=== PATIENT | female | born 1985 | race Caucasian/White ===

== ENCOUNTER 2020-11-10 16:49 | Outpatient (CLI) | payer OTHER, SELFPAY ==
[2020-11-10 17:05] LABS: Basophils Percent Auto 0.4 % (0.2-1.2); Eosinophils Absolute Auto 0.3 K/mm3 (0-0.3); Eosinophils Percent Auto 3.3 % (0-4.4); Hematocrit 42.1 % (37.0-47.0); Immature Granulocyte Absolute 0.07 K/mm3 (0.00-0.031); Immature Granulocyte Percent A 0.8 % (0-0.5); Mean Corpuscular HGB Conc 33.3 g/dl (32-36); Mean Corpuscular Hemoglobin 31.5 pg (26-34); Mean Corpuscular Volume 94.6 fl (80-100); Mean Platelet Volume 9.5 fl (7.4-10.4); Monocytes Absolute Auto 1.1 K/mm3 (0.1-0.6); Neutrophils Absolute Auto 5.3 K/mm3 (1.3-6.7); Neutrophils Percent Auto 63.5 % (45.5-73.1); Platelet Count Result 432 k/mm3 (150-375); Red Blood Count 4.45 M/mm3 (4.2-5.4); Red Cell Distribution Width 12.8 % (11.5-14.5); White Blood Count 8.4 K/mm3 (4.5-10.0)
[2020-11-10 17:15] LABS: Alanine Aminotransferase 71 U/L (4-35); Albumin Level 3.9 g/dL (3.5-5.1); Alkaline Phosphatase 100 U/L (38-126); Amylase 42 U/L (30-110); Anion Gap 4 mmol/L (8-16); Aspartate Amino Transferase 55 U/L (14-36); Bilirubin,Total 0.2 mg/dL (0.2-1.3); Blood Urea Nitrogen 9 mg/dL (7-17); Calcium 9.4 mg/dL (8.4-10.2); Carbon Dioxide 30 mmol/L (22-30); Chloride 106 mmol/L (98-107); Estimated Glomerular Filt Rate > 60; Glucose 94 mg/dL (65-105); Lipase 100 U/L (23-300); Potassium 3.8 mmol/L (3.4-5.0); Sodium 140 mmol/L (137-145)
== END 2020-11-10 16:50 | disposition home or self-care (01) ==
LOC: ANHLAB 16:52
PROVIDERS: PCP Family Medicine; Visit Provider Nurse Practitioner Family
DX: R19.7 Diarrhea, unspecified (principal)
CPT/HCPCS: 36415; 80053; 82150; 83690; 85025

== ENCOUNTER 2020-11-11 16:03 | Outpatient (CLI) | payer OTHER, SELFPAY ==
--- NOTE | ~2020-11-11 | CT_ITS ---
EXAMINATION: CT abdomen pelvis w con EXAM DATE: 11/11/2020 16:41 INDICATION: R19.7 - Diarrhea, unspecified. Left upper quadrant pain. TECHNIQUE: Spiral CT of the abdomen and pelvis was performed following intravenous injection of 100 m L Omnipaque 350. Axial, coronal and sagittal images of the abdomen and pelvis were reviewed. The do se-length product (DLP) for this examination was 1628.66 mGy-cm. The exposure was tailored according to patient size (auto mA exposure control), and iterative reconstruction (ASIR) was used as addition al dose reduction technique. There is no prior study for comparison. FINDINGS: The liver, spleen, adrenal glands and pancreas are unremarkable. There are cholecystectomy clips. Portal and splenic veins are patent. Kidneys enhance symmetrically. There is no hydronephr osis. There is IUD which appears to be centrally located within the endometrium, expected position. The bladder is unremarkable. There is no retroperitoneal or pelvic lymphadenopathy. Only small amount of colonic contents. Under distention may be causing mild prominence to some region s of the colon wall thickness. There is no adjacent inflammation but can't exclude mild colitis. The appendix is not positively visualized. There is no pericecal inflammatory change to suggest appendic itis. The stomach and small bowel are unremarkable. No free intraperitoneal gas. The heart is nor mal in size. There are no pericardial or pleural effusions. The lung bases are unremarkable. The b ones are unremarkable. IMPRESSION: Can't exclude mild colitis. Reviewed, dictated and finalized at location A. IMPRESSION: Can't exclude mild colitis.
== END 2020-11-11 16:04 | disposition home or self-care (01) ==
PROVIDERS: PCP Family Medicine; Visit Provider Nurse Practitioner Family
DX: R10.812 Left upper quadrant abdominal tenderness (principal); R10.9 Unspecified abdominal pain; R19.7 Diarrhea, unspecified
CPT/HCPCS: 74177; Q9967

== ENCOUNTER 2020-11-17 16:21 | Outpatient (CLI) | payer OTHER, SELFPAY ==
[2020-11-17 17:25] LABS: Erythrocyte Sedimentation Rate 19 mm/hr (0-20)
[2020-11-17 17:49] LABS: Alanine Aminotransferase 43 U/L (4-35); Albumin Level 4.3 g/dL (3.5-5.1); Alkaline Phosphatase 74 U/L (38-126); Anion Gap 6 mmol/L (8-16); Aspartate Amino Transferase 44 U/L (14-36); Bilirubin,Total 0.4 mg/dL (0.2-1.3); Blood Urea Nitrogen 16 mg/dL (7-17); CRP 0.8 mg/dL (<1.0); Calcium 9.2 mg/dL (8.4-10.2); Carbon Dioxide 29 mmol/L (22-30); Chloride 104 mmol/L (98-107); Cholesterol 169 mg/dL (0-200); Estimated Glomerular Filt Rate > 60; Glucose 89 mg/dL (65-105); HDL Direct 36 mg/dL; Sodium 139 mmol/L (137-145); Triglycerides 131 mg/dL (<150)
[2020-11-17 17:55] LABS: LDL Cholesterol Direct 108 mg/dL
[2020-11-20 04:16] LABS: GGT 42 U/L (3-50)
== END 2020-11-17 16:22 | disposition home or self-care (01) ==
LOC: ANHLAB 16:23
PROVIDERS: PCP Family Medicine; Visit Provider Nurse Practitioner Family
DX: R74.8 Abnormal levels of other serum enzymes (principal); R10.10 Upper abdominal pain, unspecified; R19.7 Diarrhea, unspecified
CPT/HCPCS: 36415; 80053; 80061; 82977; 85652; 86038; 86140

== ENCOUNTER 2022-08-15 10:05 | Emergency (ER) | payer OTHER, SELFPAY ==
--- NOTE | 2022-08-15 10:07 | ED.URI ---
HPI - URI/Sore Throat General Chief Complaint: Upper Respiratory Infection Stated Complaint: uri Time Seen by Provider: 08/15/22 10:25 Source: patient and RN notes reviewed Mode of arrival: ambulatory Limitations: no limitations History of Present Illness HPI Narrative: 36-year-old female presents concern for 3 week history of nasal congestion, rhinorrhea, productive cough, chest congestion. Reports taking [id number] medication without relief. Reports she tried a friend's Tessalon Perles and has some cough relief. She reports symptoms have worse. She denies fever. MD elicited complaint: cough and nasal congestion Related Data Allergies Allergy/AdvReac Type Severity Reaction Status Date / Time No Known Allergies Allergy Verified 08/15/22 10:16 Review of Systems Review of Systems: CONSTITUTIONAL: Reports malaise. Denies chills, sweats, or fever. EYES: Denies visual changes, redness, or discharge. ENT: Reports rhinorrhea, congestion, sinus pain, otalgia and sore throat. CARDIOVASCULAR: Denies chest pain, palpitations, or edema. RESPIRATORY: Reports productive cough and chest congestion. Denies dyspnea. GASTROINTESTINAL: Denies abdominal pain, nausea, vomiting, diarrhea SKIN: Denies rash or itching. MUSCULOSKELETAL: Denies myalgia. NEUROLOGIC: Denies headache. All systems reviewed & are unremarkable except as noted in HPI and below PMFSH Past Medical History Medical History Abnormal weight gain B12 deficiency Cyst of left breast Dietary counseling and surveillance (02/09/18) Hidradenitis Screening for diabetes mellitus Screening for lipid disorders Screening for thyroid disorder Sprain of unspecified ligament of right ankle, initial encounter Vitamin D deficiency Wheezy bronchitis Family History Family History Grandparent Family history of malignant neoplasm of breast Father No problems noted. Mother No problems noted. Sibling No problems noted. 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 There is no relevant family history pertinent to the presenting complaint Exam Narrative: GENERAL: Nontoxic-appearing and in no acute distress. HEAD: Normocephalic EYES: PERRLA, conjunctivae clear ENT: Nares clear, turbinates edematous and erythematous, green discharge. Mucous membranes moist. TM pearly weeks with dull light reflex bilaterally; no tragal tenderness. Oropharynx not erythematous without lesions. Tonsils not enlarged and without exudate, no drooling, no hoarseness, no trismus, uvula midline. NECK: Supple. No lymphadenopathy CHEST: Clear to auscultation, breath sounds equal. No wheezing, rhonchi, rales, or stridor. No respiratory distress, speaks in full sentences. Cough noted HEART: Regular rate and rhythm. No murmur heard. SKIN: Warm, dry, no rash. NEURO: Alert and oriented x3. PSYCH: Normal mood and affect Course Course Emergency Course: Patient is aware of diagnosis, understands and agrees to treatment plan. Anticipatory guidance given. Patient agrees to follow-up as directed and is aware of reasons to seek care at the emergency department. Portions of this record may have been created with voice recognition software Level of Care: Express Care Visit Vital Signs Vital signs: Reviewed. MDM - URI/Sore Throat MDM Narrative Medical decision m
[2022-08-15 10:16] VITALS: BP 138/97; PULSE 91; RESP 16; TEMP 36.7; O2SAT 99
== END 2022-08-15 10:37 | disposition home or self-care (01) ==
PROVIDERS: Emergency Provider Nurse Practitioner; PCP Family Medicine
DX: J32.9 Chronic sinusitis, unspecified (principal); J40 Bronchitis, not specified as acute or chronic; F17.210 Nicotine dependence, cigarettes, uncomplicated
CPT/HCPCS: 99213; G0463

== ENCOUNTER 2024-10-12 15:35 | Outpatient (CLI) | payer BC, SELFPAY ==
--- NOTE | ~2024-10-12 | US_ITS ---
Thyroid ultrasound. Clinical History: Nontoxic goiter Findings: Real-time sonography of the thyroid gland was performed. The right lobe measures 4.9 x 1.4 x 1.7 cm. The left lobe measures 4.9 x 1.1 x 1.5 cm. The isthmus is 2 mm in AP diameter. No discrete thyroid nodule seen. Impression: Unremarkable exam. Reviewed, dictated and finalized at location . Impression: Unremarkable exam.
== END 2024-10-12 15:36 | disposition home or self-care (01) ==
LOC: MICIMG 15:36
PROVIDERS: PCP Family Medicine; Visit Provider Physician Assistant Medical
DX: E04.9 Nontoxic goiter, unspecified (principal)
CPT/HCPCS: 76536